=== PATIENT | male | born 1975 | race Caucasian/White ===

== ENCOUNTER 2017-05-26 10:47 | Emergency (ER) | payer SELFPAY ==
--- NOTE | 2017-05-26 12:19 | US ---
EXAM DESCRIPTION: Venous,Lower Extremity LT (accession [id number]), Venous,Lower Extremity RT (accession [id number]) CLINICAL HISTORY: Lower extremity edema COMPARISON: None. TECHNIQUE: 2D grayscale and color venous duplex Doppler evaluation of the lower extremity are obtained from groin to calf. FINDINGS: There is normal flow, augmentation to flow, and compressibility of the deep venous vasculature of the bilateral lower extremities with no ultrasound evidence of deep venous thrombosis. IMPRESSION: No ultrasound evidence of deep venous thrombosis in the bilateral lower extremities. Electronically signed by: Nelson Shields MD 05/26/2017 12:17 PM CDT
--- NOTE | 2017-05-26 12:19 | US ---
EXAM DESCRIPTION: Venous,Lower Extremity LT (accession [id number]), Venous,Lower Extremity RT (accession [id number]) CLINICAL HISTORY: Lower extremity edema COMPARISON: None. TECHNIQUE: 2D grayscale and color venous duplex Doppler evaluation of the lower extremity are obtained from groin to calf. FINDINGS: There is normal flow, augmentation to flow, and compressibility of the deep venous vasculature of the bilateral lower extremities with no ultrasound evidence of deep venous thrombosis. IMPRESSION: No ultrasound evidence of deep venous thrombosis in the bilateral lower extremities. Electronically signed by: Nelson Shields MD 05/26/2017 12:17 PM CDT
[2017-05-26] MEDS ORDERED: KETOROLAC TROMETHAMINE INJ 30 MG/ML VIAL IM ONE (12:26)
--- NOTE | 2017-05-26 13:11 | ED.PDOC ---
History of Present Illness - General Chief Complaint: Lower Extremity Injury Stated Complaint: right leg pain Time Seen by Provider: 05/26/17 11:17 Source: patient Exam Limitations: no limitations - History of Present Illness Initial Comments: Patient presents with RLE edema for three days. Gradual onset. It started hurting today. No previous episodes. No history of blood dyscrasias, DVT, or PE. Patient has not been on any recent trips. He stopped smoking 4 years ago. He does not use any steroids. No dyspnea nor chest pain. No other complaints. Timing/Duration: other - 3 days Severity: moderate Improving Factors: nothing Worsening Factors: nothing Associated Symptoms: denies symptoms Allergies/Adverse Reactions: Allergies NO KNOWN ALLERGY Allergy (Verified 07/08/13 12:05) Home Medications: Ambulatory Orders NK 07/08/13 Insulin Glargine [Lantus] 25 unit SC DAILY #0 ml 07/10/13 Insulin Lispro [Humalog] 0 unit SUBCU QID #0 pen 07/10/13 Cephalexin Monohydrate [Keflex] 500 mg PO Q6HR #40 cap 05/26/17 Tramadol HCl 50 mg PO Q4HR #30 tab 05/26/17 Review of Systems - Review of Systems Constitutional: States: no symptoms reported EENTM: States: no symptoms reported Respiratory: States: no symptoms reported Cardiology: States: no symptoms reported Gastrointestinal/Abdominal: States: no symptoms reported Genitourinary: States: no symptoms reported Musculoskeletal: States: other - see HPI Skin: States: no symptoms reported Neurological: States: no symptoms reported Endocrine: States: no symptoms reported Hematologic/Lymphatic: States: no symptoms reported Past Medical History (General) - Patient Medical History Hx Cardiac Disorders: No Hx Congestive Heart Failure: No Hx Diabetes: Yes Hx MRSA: No Family Medical History - Family History Father Family History: Unknown Physical Exam - Physical Exam General Appearance: Alert Respiratory: lungs clear Cardiovascular/Chest: regular rate, rhythm, other - 2+ pitting edema in RLE from toes to knee. No erythema. NTTP. Peripheral Pulses: radial,right: 2+, radial,left: 2+, femoral,right: 2+, femoral ,left: 2+, popliteal,right: 2+, popliteal,left: 2+, dorsalis pedis,right: 0 - edema masks the pulse, dorsalis pedis,left: 2+, posterior tibialis,right: 0 - edema masks the pulse, posterior tibialis,left: 2+ Gastrointestinal/Abdominal: normal bowel sounds, non tender, soft Extremity: other - 2+ pitting edema in RLE from toes to knee. No erythema. NTTP. Skin Exam: normal color Lymphatic: no adenopathy Progress - Progress Progress: 05/26/17 14:48 Laboratory Tests 05/26/17 05/26/17 05/26/17 13:20 13:20 13:20 WBC 11.7 H RBC 5.28 Hgb 15.4 Hct 44.7 MCV 84.6 MCH 29.1 MCHC 34.4 RDW 13.9 Plt Count 214 MPV 7.9 Absolute Neuts (auto) 9.40 H Absolute Lymphs (auto) 1.50 Absolute Monos (auto) 0.60 Absolute Eos (auto) 0.20 Absolute Basos (auto) 0.10 Neutrophils % 79.7 H Lymphocytes % 12.6 L Monocytes % 5.3 Eosinophils % 1.5 Basophils % 0.9 PT 12.4 INR 1.070 PTT (SP) 32.6 Sodium 137 Potassium 4.1 Chloride 104 Carbon Dioxide 24 Anion Gap 13.1 BUN 13 Creatinine 0.76 BUN/Creatinine Ratio 17.1 Random Glucose 179 H Serum Osmolality 278.4 Calcium 9.5 Total Bilirubin 0.6 AST 10 ALT 14 Alkaline Phosphatase 57 B-Natriuretic Peptide Serum Total Protein 7.9 Albumin 4.1 Globulin 3.8 H Albumin/Globulin Ratio 1.1 Urine Color Urine Appearance Urine pH Ur Specific [place] Urine Protein Urine Glucose (UA) Urine Ketones Urine Blood Urine Nitrite Urine Bilirubin Urine Urobilinogen Ur Leukocyte Esterase Urine RBC Urine WBC Ur Epithelial Cells Amorphous Sediment Urine Bacteria Urine Mucus 05/26/17 05/26/17 13:20 13:40 WBC RBC Hgb Hct MCV MCH MCHC RDW Plt Count MPV Absolute Neuts (auto) Absolute Lymphs (auto) Absolute Monos (auto) Absolute Eos (auto) Absolute Basos (auto) Neutrophils % Lymphocytes % Monocytes % Eosinophils % Basophils % PT INR PTT (SP) Sodium Potassium Chloride Carbon Dioxide Anion Gap BUN Creatinine BUN/Creatinine Ratio Random Glucose Serum Osmolality Calcium Total Bilirubin AST ALT Alkaline Phosphatase B-Natriuretic Peptide 5.0 Serum Total Protein Albumin Globulin Albumin/Globulin Ratio Urine Color Yellow Urine Appearance Clear Urine pH 5.5 Ur Specific [place] 1.025 Urine Protein 30 Urine Glucose (UA) Negative Urine Ketones Negative Urine Blood Trace-lysed H Urine Nitrite Negative Urine Bilirubin Negative Urine Urobilinogen 0.2 Ur Leukocyte Esterase Negative Urine RBC 0-1 Urine WBC 0-1 Ur Epithelial Cells 1-3 Amorphous Sediment 1+ Urine Bacteria Rare Urine Mucus Large Mildly elevated WBC. Patient had temp of 101. This could be the start of cellulitis or may be unrelated. However, will start Keflex to help prevent cellulitis. LFTs wnl, UA with a small amount of protein but serum protein was normal, bnp wnl. No cause, yet, for this unilateral edema but Stimmer's sign indicates it is lymphatic in origin. Will have patient elevate it at night and follow up with his pcp today. E.R. warnings given. Questions were elicited and answered. Patient voiced understanding and agreement with the plan. Departure - Departure Clinical Impression: Lymphedema Disposition: Discharge to Home or Self Care Condition: Good Departure Forms: ED Discharge - Pt. Copy, Patient Portal Self Enrollment Instructions: DI for Leg Pain Diet: other - as per your regular doctor Activity: increase activity as tolerated Referrals: Karen Jon NP [Primary Care Provider] - 1-2 Weeks Prescriptions: Tramadol HCl 50 mg PO Q4HR #30 tab Cephalexin Monohydrate [Keflex] 500 mg PO Q6HR #40 cap Home Medications: Ambulatory Orders NK 07/08/13 Insulin Glargine [Lantus] 25 unit SC DAILY #0 ml 07/10/13 Insulin Lispro [Humalog] 0 unit SUBCU QID #0 pen 07/10/13 Cephalexin Monohydrate [Keflex] 500 mg PO Q6HR #40 cap 05/26/17 Tramadol HCl 50 mg PO Q4HR #30 tab 05/26/17 Additional Instructions: Take your prescription as directed. You may take ibuprofen, tylenol, or aspirin for the pain and swelling. Do not take both aspirin and ibuprofen. Elevae the right leg above the heart when sitting or sleeping. See your regular doctor tomorrow for further evaluation. Return to the E.R. immediately for shortness of breath, chest pain, or palpitations.
[2017-05-26 13:24] VITALS: O2SAT 96
[2017-05-26] MEDS ORDERED: MORPHINE SULFATE INJ 10 MG/ML VIAL IV ONE (14:26)
[2017-05-26] MEDS ORDERED: ACETAMINOPHEN 325 MG TAB ONE (14:58)
[2017-05-26] MEDS: ACETAMINOPHEN 325 MG TAB PO ONE ×2 (14:59→15:01)
[2017-05-26 15:17] VITALS: BP 127/80
[2017-05-26 15:18] VITALS: TEMP 99.8
== END 2017-05-26 15:18 | disposition home or self-care (01) ==
LOC: ER 10:47
DX: I89.0 Lymphedema, not elsewhere classified (principal); E11.9 Type 2 diabetes mellitus without complications; Z79.4 Long term (current) use of insulin
CPT/HCPCS: 36415; 80053; 81001; 83880; 85025; 85610; 85730; 87040; 93971; J1885; J2270